=== PATIENT | female | born 1940 | race Caucasian/White ===

== ENCOUNTER → 2020-03-31 09:50 | Outpatient (CLI) | payer BC, SELFPAY | PROVIDERS: Referring Provider Physician Assistant; Visit Provider Physician Assistant | DX: Z11.59 Encounter for screening for other viral diseases (principal) | CPT/HCPCS: 87635; C9803; U0003 ==

== ENCOUNTER → 2021-02-23 16:43 | Outpatient (CLI) | payer BC, SELFPAY ==
--- NOTE | 2021-02-23 | KNEE_PTH ---
PATIENT: INDIGO MARTINEZ LOC: [facility] U#:[id number] AGE/SX: 84/F ROOM: RE02/23/[address]: Dr. Taqueria Cortes MD : 1940 BED: DIS: SPEC #: [id number] RECD: 02/23/21 15:07 STATUS: SHALINI AME #: [id number] YOSELYN: 02/23/21 00:[address]: Taqueria Cortes DEPT: SURGICAL PATHOLOGY RECD BY: Jaswinder Adler ENTERED: 02/26/21 12:03 SP TYPE: TOTAL KNEE OTHR DR: MUKESH Tissues: Knee, NOS Procedures: Decalcification bone/plaque Surgery Specimen Level IV HEADER OPERATION: Right total knee arthroplasty PRE-OP DIAGNOSIS: Right knee primary osteoarthritis TISSUE SUBMITTED: Bone right knee MICROSCOPIC DIAGNOSIS Bone and tissue of right knee, total knee resection: Severe degenerative joint disease. Mild synovial hyperplasia. AM:sophie 03/01/2021 MICROSCOPIC DESCRIPTION Slides are reviewed. GROSS DESCRIPTION Received is one container designated bone and soft tissue right knee. The specimen consists of multiple fragments of castlilo-yellow bone measuring in aggregate 14 x 9 x 1.5 cm. Also in the specimen container are multiple fragments of yellow-white soft tissue measuring in aggregate 7 x 6 x 2 cm. A number of bony fragments contain articular surfaces consistent with tibial plateau and femoral condyle and displaying prominent osteophyte formation, eburnation, and bone erosion. 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 / AM:sophie 02/26/21 TC:5 CPT: 59180, 59907
== END ==
PROVIDERS: Referring Provider Orthopaedic Surgery; Visit Provider Orthopaedic Surgery
DX: M17.11 Unilateral primary osteoarthritis, right knee (principal)
CPT/HCPCS: 88305; 88311